=== PATIENT | male | born 1980 | race Caucasian/White ===

== ENCOUNTER 2018-09-20 01:30 | Emergency (ER) | payer OTHER ==
[~2018-09-20] VITALS: Ht 172.7 cm; Wt 72.6 kg
[2018-09-20 01:38] VITALS: BP 118/83; Ht 172.7 cm; Wt 72.6 kg
== END 2018-09-20 02:35 | disposition home or self-care (01) ==
LOC: D.ER 01:30
DX: S89.92XA Unspecified injury of left lower leg, initial encounter (principal); X58.XXXA Exposure to other specified factors, initial encounter; Y93.55 Activity, bike riding; Y92.89 Other specified places as the place of occurrence of the external cause